=== PATIENT | male | born 1980 | race Caucasian/White ===

== ENCOUNTER 2022-05-24 11:12 | Inpatient (IN) | payer OTHER ==
[2022-05-24 12:20] VITALS: BMI 21.2
[2022-05-24] MEDS ORDERED: BISMUTH SUBSALICYLATE 524 MG/30 ML PO PRN (12:33)
[2022-05-24] MEDS ORDERED: chlordiazePOXIDE HCL 25 MG CAPSULE PO PRN (12:33)
[2022-05-24] MEDS ORDERED: NALOXONE HCL (KLOXXADO) 8 MG SPRAY NS PRN (12:33)
[2022-05-24] MEDS ORDERED: chlordiazePOXIDE HCL 25 MG CAPSULE PO ONE (12:33)
[2022-05-24] MEDS ORDERED: MAGNESIUM HYDROX 2400MG/30ML ORAL SUSPENSION 30 ML CUP PO PRN (12:33)
[2022-05-24] MEDS ORDERED: IBUPROFEN 400 MG TABLET (FP) PO PRN (12:33)
[2022-05-24] MEDS ORDERED: METHOCARBAMOL 500 MG TABLET PO PRN (12:33)
[2022-05-24] MEDS ORDERED: ACETAMINOPHEN 325 MG TABLET (FP) PO PRN ×2 (12:33)
[2022-05-24] MEDS ORDERED: NICOTINE 10 MG CARTRIDGE (INHALER) IH PRN (12:33)
[2022-05-24] MEDS ORDERED: BENZOCAINE/MENTHOL (CHLORASEPTIC ) LOZENGE MM PRN (12:33)
[2022-05-24] MEDS ORDERED: DICYCLOMINE HCL 10 MG CAPSULE PO PRN (12:33)
[2022-05-24] MEDS ORDERED: MAGNESIUM CITRATE 300 ML BOTTLE PO PRN (12:33)
[2022-05-24] MEDS ORDERED: hydrOXYzine PAMOATE 25 MG CAPSULE (FP) PO PRN (12:33)
[2022-05-24] MEDS ORDERED: LOPERAMIDE HCL 2 MG CAPSULE PO PRN (12:33)
[2022-05-24] MEDS ORDERED: ONDANSETRON *ODT* 4 MG TABLET SL PRN (12:33)
[2022-05-24] MEDS ORDERED: IBUPROFEN 600 MG TABLET (FP) PO PRN (12:33)
[2022-05-24] MEDS ORDERED: chlordiazePOXIDE HCL 25 MG CAPSULE ONE (12:43)
[2022-05-24] MEDS: PRENATAL VITAMINS W/ FOLIC ACID TABLET (FP) PO SCH (13:12)
[2022-05-24] MEDS: NICOTINE 14 MG/24 HOURS TOPICAL PATCH TD SCH (13:15)
[2022-05-24] MEDS: chlordiazePOXIDE HCL 25 MG CAPSULE PO SCH ×2 (17:59→22:20)
[2022-05-24] MEDS: MELATONIN 5 MG TABLETS PO SCH (22:20)
[2022-05-24] MEDS: THIAMINE HCL 100 MG TABLET (FP) PO SCH (22:20)
[2022-05-24] MEDS: SUVOREXANT 10 MG TABLET PO PRN (22:22)
[2022-05-25] MEDS: chlordiazePOXIDE HCL 25 MG CAPSULE PO SCH ×4 (05:22→22:30)
[2022-05-25 09:55] LABS: HEMATOCRIT 34.4 % (35.4-49); HEMOGLOBIN 11.2 GM/dL (11.7-16.9); MCHC 32.6 g/dl (32.0-35.9); MEAN CELL VOLUME 95.2 fl (80-96); PLATELET COUNT 222 10^3/uL (134-434); RBC 3.61 M/mm3 (4.00-5.60); RDW 16.4 % (11.9-15.9); WHITE BLOOD COUNT 9.6 K/mm3 (4.0-10.0)
[2022-05-25 10:00] LABS: CHLORIDE 110 mmol/L (98-107); SODIUM 145 mmol/L (136-145)
[2022-05-25 10:17] LABS: ALBUMIN 2.8 g/dl (3.4-5.0); ANION GAP 9 MMOL/L (8-16); CALCIUM 8.3 mg/dL (8.5-10.1); CO2 26 mmol/L (21-32)
[2022-05-25 10:19] LABS: GLUCOSE,RANDOM 87 mg/dL (74-106)
[2022-05-25 10:21] LABS: CREATININE 0.6 mg/dL (0.55-1.3); SGPT/ALT 19 U/L (13-61)
[2022-05-25 10:22] LABS: BILIRUBIN,TOTAL 0.9 mg/dL (0.2-1); SGOT/AST 30 U/L (15-37); TOT PROT 5.3 g/dl (6.4-8.2)
[2022-05-25 10:23] LABS: ALK PHOS 148 U/L (45-117)
[2022-05-25] MEDS ORDERED: POTASSIUM CHLORIDE ORAL LIQUID 20 MEQ/15 ML PO ONE (10:26)
[2022-05-25 10:32] LABS: BLOOD UREA NITROGEN 2.8 mg/dL (7-18)
[2022-05-25] MEDS: PRENATAL VITAMINS W/ FOLIC ACID TABLET (FP) PO SCH (10:36)
[2022-05-25] MEDS: NICOTINE 14 MG/24 HOURS TOPICAL PATCH TD SCH (10:38)
[2022-05-25] MEDS: LACTULOSE 20 GM/30 ML UDC (FOR ORAL USE ONLY) PO SCH ×3 (14:05→22:31)
[2022-05-25] MEDS: POTASSIUM CHLORIDE ORAL LIQUID 20 MEQ/15 ML PO SCH (22:30)
[2022-05-25] MEDS: THIAMINE HCL 100 MG TABLET (FP) PO SCH (22:30)
[2022-05-25] MEDS: MELATONIN 5 MG TABLETS PO SCH (22:31)
[2022-05-25] MEDS: SUVOREXANT 10 MG TABLET PO PRN (22:34)
[2022-05-26] MEDS: chlordiazePOXIDE HCL 25 MG CAPSULE PO SCH ×4 (05:15→22:39)
[2022-05-26] MEDS: NICOTINE 14 MG/24 HOURS TOPICAL PATCH TD SCH (10:15)
[2022-05-26] MEDS: POTASSIUM CHLORIDE ORAL LIQUID 20 MEQ/15 ML PO SCH ×2 (10:16→22:41)
[2022-05-26] MEDS: PRENATAL VITAMINS W/ FOLIC ACID TABLET (FP) PO SCH (10:16)
[2022-05-26] MEDS: LACTULOSE 20 GM/30 ML UDC (FOR ORAL USE ONLY) PO SCH ×4 (10:17→22:42)
[2022-05-26 12:01] LABS: BLOOD UREA NITROGEN 2.6 mg/dL (7-18)
[2022-05-26] MEDS: MAG HYDROX/AL HYDROX/SIMETH 30 ML UNIT-DOSE CUP PO PRN (19:03)
[2022-05-26] MEDS: MELATONIN 5 MG TABLETS PO SCH (22:38)
[2022-05-26] MEDS: THIAMINE HCL 100 MG TABLET (FP) PO SCH (22:38)
[2022-05-26] MEDS: SUVOREXANT 10 MG TABLET PO PRN (22:38)
[2022-05-27] MEDS ORDERED: chlordiazePOXIDE HCL 10 MG CAPSULE PO PRN
[2022-05-27] MEDS: chlordiazePOXIDE HCL 10 MG CAPSULE PO SCH ×4 (05:13→22:38)
[2022-05-27] MEDS: NICOTINE 14 MG/24 HOURS TOPICAL PATCH TD SCH (10:43)
[2022-05-27] MEDS: PRENATAL VITAMINS W/ FOLIC ACID TABLET (FP) PO SCH (10:43)
[2022-05-27] MEDS: LACTULOSE 20 GM/30 ML UDC (FOR ORAL USE ONLY) PO SCH ×4 (10:43→22:39)
[2022-05-27] MEDS: MAG HYDROX/AL HYDROX/SIMETH 30 ML UNIT-DOSE CUP PO PRN ×2 (11:54→22:40)
[2022-05-27] MEDS ORDERED: SUVOREXANT 10 MG TABLET PO PRN (22:00)
[2022-05-27] MEDS: THIAMINE HCL 100 MG TABLET (FP) PO SCH (22:38)
[2022-05-27] MEDS: MELATONIN 5 MG TABLETS PO SCH (22:38)
[2022-05-28] MEDS: chlordiazePOXIDE HCL 10 MG CAPSULE PO SCH ×2 (05:22→18:21)
[2022-05-28] MEDS: PRENATAL VITAMINS W/ FOLIC ACID TABLET (FP) PO SCH (10:11)
[2022-05-28] MEDS: LACTULOSE 20 GM/30 ML UDC (FOR ORAL USE ONLY) PO SCH ×4 (10:12→22:10)
[2022-05-28] MEDS: NICOTINE 14 MG/24 HOURS TOPICAL PATCH TD SCH (10:13)
[2022-05-28] MEDS: MAG HYDROX/AL HYDROX/SIMETH 30 ML UNIT-DOSE CUP PO PRN (15:22)
[2022-05-28] MEDS ORDERED: POTASSIUM CHLORIDE ORAL LIQUID 20 MEQ/15 ML PO ONE (15:34)
[2022-05-28] MEDS: THIAMINE HCL 100 MG TABLET (FP) PO SCH (22:09)
[2022-05-28] MEDS: MELATONIN 5 MG TABLETS PO SCH (22:09)
[2022-05-28] MEDS: POTASSIUM CHLORIDE ORAL LIQUID 20 MEQ/15 ML PO SCH (22:10)
[2022-05-29] MEDS ORDERED: chlordiazePOXIDE HCL 10 MG CAPSULE PO ONE (05:00)
[2022-05-29] MEDS: MAG HYDROX/AL HYDROX/SIMETH 30 ML UNIT-DOSE CUP PO PRN ×2 (09:31→14:35)
[2022-05-29] MEDS: NICOTINE 14 MG/24 HOURS TOPICAL PATCH TD SCH (10:31)
[2022-05-29] MEDS: PRENATAL VITAMINS W/ FOLIC ACID TABLET (FP) PO SCH (10:31)
[2022-05-29] MEDS: LACTULOSE 20 GM/30 ML UDC (FOR ORAL USE ONLY) PO SCH ×2 (10:32→15:01)
[2022-05-29] MEDS: POTASSIUM CHLORIDE ORAL LIQUID 20 MEQ/15 ML PO SCH (10:32)
[2022-05-29 12:41] VITALS: BP 102/67; PULSE 90; RESP 17; TEMP 98
== END 2022-05-29 15:08 | disposition other institution (70) | DRG 775 ==
LOC: YASAS 11:12 → Y3N 12:39
PROVIDERS: ADMIT Allergy & Immunology; ATTEND Surgery
PROC: HZ2ZZZZ Detoxification Services for Substance Abuse Treatment (ICD-10-PCS; principal; 2022-05-24)
DX: F10.230 Alcohol dependence with withdrawal, uncomplicated (principal); F12.20 Cannabis dependence, uncomplicated; F17.210 Nicotine dependence, cigarettes, uncomplicated; E87.6 Hypokalemia; G40.909 Epilepsy, unspecified, not intractable, without status epilepticus; G47.00 Insomnia, unspecified; M54.50 Low back pain, unspecified; G89.29 Other chronic pain; R79.89 Other specified abnormal findings of blood chemistry; Z86.19 Personal history of other infectious and parasitic diseases; Z28.310 Unvaccinated for COVID-19; Z28.9 Immunization not carried out for unspecified reason; Z91.14 Patient's other noncompliance with medication regimen
CPT/HCPCS: 36415; 80053; 82140; 84132; 84520; 85027; 86780; 93005; 93010; C9803-CS; U0003; U0005

== ENCOUNTER 2022-05-29 15:12 | Inpatient (IN) | payer OTHER ==
[2022-05-29] MEDS ORDERED: MAGNESIUM HYDROX 2400MG/30ML ORAL SUSPENSION 30 ML CUP PO PRN (15:39)
[2022-05-29] MEDS ORDERED: NICOTINE POLACRILEX 2 MG GUM BC PRN (15:39)
[2022-05-29] MEDS ORDERED: ACETAMINOPHEN 325 MG TABLET (FP) PO PRN (15:39)
[2022-05-29] MEDS ORDERED: MAGNESIUM CITRATE 300 ML BOTTLE PO PRN (15:39)
[2022-05-29] MEDS ORDERED: LOPERAMIDE HCL 2 MG CAPSULE PO PRN (15:39)
[2022-05-29] MEDS ORDERED: IBUPROFEN 400 MG TABLET (FP) PO PRN (15:39)
[2022-05-29] MEDS ORDERED: P-EPHED 60MG/TRIPROLIDI 2.5MG TABLET PO PRN (15:39)
[2022-05-29] MEDS ORDERED: guaiFENesin 200 MG/10 ML 10 ML UNIT-DOSE CUPS PO PRN (15:39)
[2022-05-29] MEDS: LACTULOSE 20 GM/30 ML UDC (FOR ORAL USE ONLY) PO SCH ×2 (17:37→21:25)
[2022-05-29] MEDS: IBUPROFEN 400 MG TABLET (FP) PO PRN (17:40)
[2022-05-29] MEDS: NICOTINE 10 MG CARTRIDGE (INHALER) IH PRN (19:00)
[2022-05-29] MEDS: MAG HYDROX/AL HYDROX/SIMETH 30 ML UNIT-DOSE CUP PO PRN (19:08)
[2022-05-29] MEDS: THIAMINE HCL 100 MG TABLET (FP) PO SCH (21:25)
[2022-05-29] MEDS: MELATONIN 5 MG TABLETS PO SCH (21:25)
[2022-05-30] MEDS: IBUPROFEN 400 MG TABLET (FP) PO PRN (09:49)
[2022-05-30] MEDS: PRENATAL VITAMINS W/ FOLIC ACID TABLET (FP) PO SCH (09:49)
[2022-05-30] MEDS: LACTULOSE 20 GM/30 ML UDC (FOR ORAL USE ONLY) PO SCH ×4 (09:49→21:32)
[2022-05-30] MEDS: hydrOXYzine PAMOATE 25 MG CAPSULE (FP) PO PRN (09:51)
[2022-05-30] MEDS: NICOTINE 7 MG/24 HOURS TOPICAL PATCH TD PRN (10:07)
[2022-05-30] MEDS: NICOTINE 10 MG CARTRIDGE (INHALER) IH PRN (10:09)
[2022-05-30 11:30] LABS: URINE APPEARANCE CLEAR; URINE BILIRUBIN NEGATIVE (NEGATIVE); URINE COLOR YELLOW; URINE GLUCOSE (UA) NEGATIVE (NEGATIVE); URINE KETONE NEGATIVE (NEGATIVE); URINE LEUK ESTERASE NEGATIVE (NEGATIVE); URINE NITRITE NEGATIVE (NEGATIVE); URINE PROTEIN NEGATIVE (NEGATIVE); URINE UROBILINOGEN 0.2 mg/dL (0.2-1.0)
[2022-05-30 12:24] LABS: HIV INTERPRETATION NEGATIVE (NEGATIVE)
[2022-05-30] MEDS: MAG HYDROX/AL HYDROX/SIMETH 30 ML UNIT-DOSE CUP PO PRN (14:15)
[2022-05-30] MEDS: THIAMINE HCL 100 MG TABLET (FP) PO SCH (21:32)
[2022-05-30] MEDS: MELATONIN 5 MG TABLETS PO SCH (21:32)
[2022-05-31] MEDS: LACTULOSE 20 GM/30 ML UDC (FOR ORAL USE ONLY) PO SCH ×4 (10:02→21:26)
[2022-05-31] MEDS: PRENATAL VITAMINS W/ FOLIC ACID TABLET (FP) PO SCH (10:02)
[2022-05-31] MEDS: IBUPROFEN 400 MG TABLET (FP) PO PRN (10:04)
[2022-05-31] MEDS: NICOTINE 10 MG CARTRIDGE (INHALER) IH PRN (10:05)
[2022-05-31] MEDS: NICOTINE 7 MG/24 HOURS TOPICAL PATCH TD PRN (10:05)
[2022-05-31] MEDS: MAG HYDROX/AL HYDROX/SIMETH 30 ML UNIT-DOSE CUP PO PRN (12:03)
[2022-05-31] MEDS: MELATONIN 5 MG TABLETS PO SCH (21:26)
[2022-05-31] MEDS: THIAMINE HCL 100 MG TABLET (FP) PO SCH (21:26)
[2022-06-01] MEDS: PRENATAL VITAMINS W/ FOLIC ACID TABLET (FP) PO SCH (10:01)
[2022-06-01] MEDS: LACTULOSE 20 GM/30 ML UDC (FOR ORAL USE ONLY) PO SCH ×4 (10:02→21:14)
[2022-06-01] MEDS: FAMOTIDINE 20 MG TABLET PO PRN (10:02)
[2022-06-01] MEDS: NICOTINE 10 MG CARTRIDGE (INHALER) IH PRN ×2 (10:10→21:52)
[2022-06-01] MEDS: NICOTINE 7 MG/24 HOURS TOPICAL PATCH TD PRN (10:18)
[2022-06-01 11:27] LABS: CALCIUM 9.4 mg/dL (8.5-10.1)
[2022-06-01 11:30] LABS: CREATININE 0.8 mg/dL (0.55-1.3)
[2022-06-01 11:32] LABS: BILIRUBIN,TOTAL 0.6 mg/dL (0.2-1); TOT PROT 6.9 g/dl (6.4-8.2)
[2022-06-01 11:34] LABS: ALBUMIN 3.7 g/dl (3.4-5.0)
[2022-06-01] MEDS: hydrOXYzine PAMOATE 25 MG CAPSULE (FP) PO PRN (18:56)
[2022-06-01] MEDS: THIAMINE HCL 100 MG TABLET (FP) PO SCH (21:14)
[2022-06-01] MEDS: MELATONIN 5 MG TABLETS PO SCH (21:14)
[2022-06-02] MEDS: PRENATAL VITAMINS W/ FOLIC ACID TABLET (FP) PO SCH (09:55)
[2022-06-02] MEDS: LACTULOSE 20 GM/30 ML UDC (FOR ORAL USE ONLY) PO SCH ×4 (09:55→21:28)
[2022-06-02] MEDS: NICOTINE 10 MG CARTRIDGE (INHALER) IH PRN ×2 (10:39→21:51)
[2022-06-02] MEDS: NICOTINE 7 MG/24 HOURS TOPICAL PATCH TD PRN (10:40)
[2022-06-02] MEDS: FAMOTIDINE 20 MG TABLET PO PRN (12:07)
[2022-06-02] MEDS: IBUPROFEN 400 MG TABLET (FP) PO PRN (13:32)
[2022-06-02] MEDS: MELATONIN 5 MG TABLETS PO SCH (21:28)
[2022-06-02] MEDS: THIAMINE HCL 100 MG TABLET (FP) PO SCH (21:28)
[2022-06-03] MEDS: NICOTINE 10 MG CARTRIDGE (INHALER) IH PRN ×2 (09:44→19:46)
[2022-06-03] MEDS: PRENATAL VITAMINS W/ FOLIC ACID TABLET (FP) PO SCH (09:44)
[2022-06-03] MEDS: LACTULOSE 20 GM/30 ML UDC (FOR ORAL USE ONLY) PO SCH ×4 (09:45→21:06)
[2022-06-03] MEDS: hydrOXYzine PAMOATE 25 MG CAPSULE (FP) PO PRN ×2 (13:22→17:30)
[2022-06-03] MEDS: THIAMINE HCL 100 MG TABLET (FP) PO SCH (21:06)
[2022-06-03] MEDS: IBUPROFEN 400 MG TABLET (FP) PO PRN (21:13)
[2022-06-03] MEDS: MELATONIN 5 MG TABLETS PO SCH (22:35)
[2022-06-04] MEDS: NICOTINE 10 MG CARTRIDGE (INHALER) IH PRN ×2 (08:43→13:26)
[2022-06-04] MEDS: IBUPROFEN 400 MG TABLET (FP) PO PRN ×2 (08:49→21:24)
[2022-06-04] MEDS: hydrOXYzine PAMOATE 25 MG CAPSULE (FP) PO PRN (08:50)
[2022-06-04] MEDS: PRENATAL VITAMINS W/ FOLIC ACID TABLET (FP) PO SCH (09:15)
[2022-06-04] MEDS: NICOTINE 7 MG/24 HOURS TOPICAL PATCH TD PRN (09:39)
[2022-06-04] MEDS ORDERED: FLU VACC QS2022-23(6MOS UP)/PF 60 MCG/0.5 ML SYRINGE IM ONE (10:00)
[2022-06-04] MEDS: LACTULOSE 20 GM/30 ML UDC (FOR ORAL USE ONLY) PO SCH ×4 (11:09→21:24)
[2022-06-04] MEDS: MELATONIN 5 MG TABLETS PO SCH (21:25)
[2022-06-04] MEDS: THIAMINE HCL 100 MG TABLET (FP) PO SCH (21:26)
[2022-06-04] MEDS: HYDROCORTISONE 0.5% TOPICAL CREAM 30 GM TUBE TP PRN (21:26)
[2022-06-05] MEDS: NICOTINE 10 MG CARTRIDGE (INHALER) IH PRN ×2 (08:13→21:15)
[2022-06-05] MEDS: LACTULOSE 20 GM/30 ML UDC (FOR ORAL USE ONLY) PO SCH ×4 (09:40→21:14)
[2022-06-05] MEDS: PRENATAL VITAMINS W/ FOLIC ACID TABLET (FP) PO SCH (09:40)
[2022-06-05] MEDS: IBUPROFEN 600 MG TABLET (FP) PO PRN (09:42)
[2022-06-05] MEDS: hydrOXYzine PAMOATE 25 MG CAPSULE (FP) PO PRN (09:42)
[2022-06-05] MEDS: METHOCARBAMOL 500 MG TABLET PO PRN ×2 (09:42→21:14)
[2022-06-05] MEDS: NICOTINE 7 MG/24 HOURS TOPICAL PATCH TD PRN (09:57)
[2022-06-05] MEDS: FAMOTIDINE 20 MG TABLET PO PRN (11:38)
[2022-06-05] MEDS: HYDROCORTISONE 0.5% TOPICAL CREAM 30 GM TUBE TP PRN (12:48)
[2022-06-05] MEDS: THIAMINE HCL 100 MG TABLET (FP) PO SCH (21:14)
[2022-06-05] MEDS: MELATONIN 5 MG TABLETS PO SCH (21:14)
[2022-06-06 06:50] VITALS: RESP 18
[2022-06-06] MEDS: PRENATAL VITAMINS W/ FOLIC ACID TABLET (FP) PO SCH (09:48)
[2022-06-06] MEDS: hydrOXYzine PAMOATE 25 MG CAPSULE (FP) PO PRN (09:49)
[2022-06-06] MEDS: LACTULOSE 20 GM/30 ML UDC (FOR ORAL USE ONLY) PO SCH ×4 (09:49→21:26)
[2022-06-06] MEDS: METHOCARBAMOL 500 MG TABLET PO PRN ×2 (09:49→21:26)
[2022-06-06] MEDS: IBUPROFEN 600 MG TABLET (FP) PO PRN (09:49)
[2022-06-06] MEDS: HYDROCORTISONE 0.5% TOPICAL CREAM 30 GM TUBE TP PRN (09:50)
[2022-06-06] MEDS: NICOTINE 7 MG/24 HOURS TOPICAL PATCH TD PRN (09:53)
[2022-06-06] MEDS: THIAMINE HCL 100 MG TABLET (FP) PO SCH (21:26)
[2022-06-06] MEDS: MELATONIN 5 MG TABLETS PO SCH (21:51)
[2022-06-06] MEDS: NICOTINE 10 MG CARTRIDGE (INHALER) IH PRN (23:10)
[2022-06-07] MEDS: HYDROCORTISONE 0.5% TOPICAL CREAM 30 GM TUBE TP PRN ×2 (06:18→09:38)
[2022-06-07] MEDS: PRENATAL VITAMINS W/ FOLIC ACID TABLET (FP) PO SCH (09:37)
[2022-06-07] MEDS: LACTULOSE 20 GM/30 ML UDC (FOR ORAL USE ONLY) PO SCH ×4 (09:38→21:10)
[2022-06-07] MEDS: NICOTINE 10 MG CARTRIDGE (INHALER) IH PRN (10:23)
[2022-06-07] MEDS: NICOTINE 7 MG/24 HOURS TOPICAL PATCH TD PRN (10:23)
[2022-06-07] MEDS ORDERED: NICOTINE POLACRILEX 4 MG GUM BUC PRN (11:10)
[2022-06-07] MEDS: THIAMINE HCL 100 MG TABLET (FP) PO SCH (21:10)
[2022-06-07] MEDS: METHOCARBAMOL 500 MG TABLET PO PRN (21:10)
[2022-06-07] MEDS: MELATONIN 5 MG TABLETS PO SCH (22:15)
[2022-06-08] MEDS: PRENATAL VITAMINS W/ FOLIC ACID TABLET (FP) PO SCH (09:43)
[2022-06-08] MEDS: LACTULOSE 20 GM/30 ML UDC (FOR ORAL USE ONLY) PO SCH ×4 (09:43→21:06)
[2022-06-08] MEDS: METHOCARBAMOL 500 MG TABLET PO PRN ×2 (09:44→21:06)
[2022-06-08] MEDS: FAMOTIDINE 20 MG TABLET PO PRN (09:44)
[2022-06-08] MEDS: IBUPROFEN 600 MG TABLET (FP) PO PRN (09:45)
[2022-06-08] MEDS: NICOTINE 10 MG CARTRIDGE (INHALER) IH PRN ×2 (10:12→21:07)
[2022-06-08] MEDS: NICOTINE 21 MG/24 HOURS TOPICAL PATCH TD PRN (10:12)
[2022-06-08] MEDS: THIAMINE HCL 100 MG TABLET (FP) PO SCH (21:06)
[2022-06-08] MEDS: MELATONIN 5 MG TABLETS PO SCH (22:35)
[2022-06-09] MEDS: LACTULOSE 20 GM/30 ML UDC (FOR ORAL USE ONLY) PO SCH ×4 (09:54→21:27)
[2022-06-09] MEDS: PRENATAL VITAMINS W/ FOLIC ACID TABLET (FP) PO SCH (09:54)
[2022-06-09] MEDS: IBUPROFEN 600 MG TABLET (FP) PO PRN (09:55)
[2022-06-09] MEDS: NICOTINE 21 MG/24 HOURS TOPICAL PATCH TD PRN (10:35)
[2022-06-09] MEDS: NICOTINE 10 MG CARTRIDGE (INHALER) IH PRN ×2 (10:35→22:41)
[2022-06-09] MEDS: HYDROCORTISONE 0.5% TOPICAL CREAM 30 GM TUBE TP PRN (10:39)
[2022-06-09] MEDS: MELATONIN 5 MG TABLETS PO SCH (21:27)
[2022-06-09] MEDS: THIAMINE HCL 100 MG TABLET (FP) PO SCH (21:27)
[2022-06-09] MEDS: METHOCARBAMOL 500 MG TABLET PO PRN (21:27)
[2022-06-10] MEDS: PRENATAL VITAMINS W/ FOLIC ACID TABLET (FP) PO SCH (09:52)
[2022-06-10] MEDS: IBUPROFEN 600 MG TABLET (FP) PO PRN ×2 (09:53→21:28)
[2022-06-10] MEDS: LACTULOSE 20 GM/30 ML UDC (FOR ORAL USE ONLY) PO SCH ×4 (09:53→21:29)
[2022-06-10] MEDS: NICOTINE 10 MG CARTRIDGE (INHALER) IH PRN ×2 (09:55→21:29)
[2022-06-10] MEDS: NICOTINE 21 MG/24 HOURS TOPICAL PATCH TD PRN (09:55)
[2022-06-10] MEDS: THIAMINE HCL 100 MG TABLET (FP) PO SCH (21:28)
[2022-06-10] MEDS: METHOCARBAMOL 500 MG TABLET PO PRN (21:28)
[2022-06-10] MEDS: MELATONIN 5 MG TABLETS PO SCH (21:28)
[2022-06-11] MEDS: PRENATAL VITAMINS W/ FOLIC ACID TABLET (FP) PO SCH (10:14)
[2022-06-11] MEDS: LACTULOSE 20 GM/30 ML UDC (FOR ORAL USE ONLY) PO SCH ×4 (10:14→21:08)
[2022-06-11] MEDS: NICOTINE 10 MG CARTRIDGE (INHALER) IH PRN ×2 (10:15→21:08)
[2022-06-11] MEDS: IBUPROFEN 600 MG TABLET (FP) PO PRN (10:17)
[2022-06-11] MEDS: METHOCARBAMOL 500 MG TABLET PO PRN ×2 (10:17→21:08)
[2022-06-11] MEDS: NICOTINE 21 MG/24 HOURS TOPICAL PATCH TD PRN (10:50)
[2022-06-11] MEDS: HYDROCORTISONE 0.5% TOPICAL CREAM 30 GM TUBE TP PRN (10:52)
[2022-06-11] MEDS: THIAMINE HCL 100 MG TABLET (FP) PO SCH (21:08)
[2022-06-11] MEDS: MELATONIN 5 MG TABLETS PO SCH (22:36)
[2022-06-12] MEDS: PRENATAL VITAMINS W/ FOLIC ACID TABLET (FP) PO SCH (10:08)
[2022-06-12] MEDS: IBUPROFEN 600 MG TABLET (FP) PO PRN (10:09)
[2022-06-12] MEDS: HYDROCORTISONE 0.5% TOPICAL CREAM 30 GM TUBE TP PRN (10:09)
[2022-06-12] MEDS: METHOCARBAMOL 500 MG TABLET PO PRN ×2 (10:09→21:30)
[2022-06-12] MEDS: LACTULOSE 20 GM/30 ML UDC (FOR ORAL USE ONLY) PO SCH ×4 (10:09→21:30)
[2022-06-12] MEDS: NICOTINE 21 MG/24 HOURS TOPICAL PATCH TD PRN (10:12)
[2022-06-12] MEDS: NICOTINE 10 MG CARTRIDGE (INHALER) IH PRN ×2 (10:12→18:39)
[2022-06-12] MEDS: THIAMINE HCL 100 MG TABLET (FP) PO SCH (21:30)
[2022-06-12] MEDS: MELATONIN 5 MG TABLETS PO SCH (22:47)
[2022-06-13] MEDS: PRENATAL VITAMINS W/ FOLIC ACID TABLET (FP) PO SCH (09:11)
[2022-06-13] MEDS: METHOCARBAMOL 500 MG TABLET PO PRN ×2 (09:12→21:15)
[2022-06-13] MEDS: IBUPROFEN 600 MG TABLET (FP) PO PRN (09:12)
[2022-06-13] MEDS: LACTULOSE 20 GM/30 ML UDC (FOR ORAL USE ONLY) PO SCH ×4 (09:13→21:15)
[2022-06-13] MEDS: NICOTINE 10 MG CARTRIDGE (INHALER) IH PRN ×2 (10:00→18:56)
[2022-06-13] MEDS: NICOTINE 21 MG/24 HOURS TOPICAL PATCH TD PRN (10:45)
[2022-06-13 16:24] LABS: ALBUMIN 3.2 g/dl (3.4-5.0); CALCIUM 9.1 mg/dL (8.5-10.1)
[2022-06-13 16:25] LABS: BLOOD UREA NITROGEN 4.2 mg/dL (7-18)
[2022-06-13 16:27] LABS: CREATININE 0.6 mg/dL (0.55-1.3)
[2022-06-13 16:29] LABS: BILIRUBIN,TOTAL 0.6 mg/dL (0.2-1)
[2022-06-13] MEDS: THIAMINE HCL 100 MG TABLET (FP) PO SCH (21:14)
[2022-06-13] MEDS: MELATONIN 5 MG TABLETS PO SCH (21:14)
[2022-06-13] MEDS: SUVOREXANT 10 MG TABLET PO PRN (21:15)
[2022-06-14] MEDS: LACTULOSE 20 GM/30 ML UDC (FOR ORAL USE ONLY) PO SCH ×4 (10:03→21:35)
[2022-06-14] MEDS: HYDROCORTISONE 0.5% TOPICAL CREAM 30 GM TUBE TP PRN (10:03)
[2022-06-14] MEDS: PRENATAL VITAMINS W/ FOLIC ACID TABLET (FP) PO SCH (10:03)
[2022-06-14] MEDS: NICOTINE 10 MG CARTRIDGE (INHALER) IH PRN ×2 (10:05→21:37)
[2022-06-14] MEDS: hydrOXYzine PAMOATE 25 MG CAPSULE (FP) PO PRN ×2 (10:05→21:37)
[2022-06-14] MEDS: METHOCARBAMOL 500 MG TABLET PO PRN ×2 (10:05→21:35)
[2022-06-14] MEDS: IBUPROFEN 600 MG TABLET (FP) PO PRN ×2 (10:05→21:36)
[2022-06-14] MEDS: NICOTINE 21 MG/24 HOURS TOPICAL PATCH TD PRN (11:05)
[2022-06-14] MEDS: SUVOREXANT 10 MG TABLET PO PRN (21:33)
[2022-06-14] MEDS: MELATONIN 5 MG TABLETS PO SCH (21:35)
[2022-06-14] MEDS: THIAMINE HCL 100 MG TABLET (FP) PO SCH (21:36)
[2022-06-15] MEDS: LACTULOSE 20 GM/30 ML UDC (FOR ORAL USE ONLY) PO SCH ×4 (10:16→21:25)
[2022-06-15] MEDS: PRENATAL VITAMINS W/ FOLIC ACID TABLET (FP) PO SCH (10:16)
[2022-06-15] MEDS: METHOCARBAMOL 500 MG TABLET PO PRN ×2 (10:18→21:22)
[2022-06-15] MEDS: NICOTINE 21 MG/24 HOURS TOPICAL PATCH TD PRN (10:18)
[2022-06-15] MEDS: NICOTINE 10 MG CARTRIDGE (INHALER) IH PRN ×2 (10:18→22:15)
[2022-06-15] MEDS: IBUPROFEN 600 MG TABLET (FP) PO PRN ×2 (10:19→21:22)
[2022-06-15] MEDS: hydrOXYzine PAMOATE 25 MG CAPSULE (FP) PO PRN ×2 (10:19→21:24)
[2022-06-15] MEDS: SUVOREXANT 10 MG TABLET PO PRN (21:23)
[2022-06-15] MEDS: MELATONIN 5 MG TABLETS PO SCH (21:23)
[2022-06-15] MEDS: THIAMINE HCL 100 MG TABLET (FP) PO SCH (21:24)
[2022-06-16] MEDS: LACTULOSE 20 GM/30 ML UDC (FOR ORAL USE ONLY) PO SCH ×4 (09:44→21:36)
[2022-06-16] MEDS: PRENATAL VITAMINS W/ FOLIC ACID TABLET (FP) PO SCH (09:44)
[2022-06-16] MEDS: METHOCARBAMOL 500 MG TABLET PO PRN ×2 (09:46→21:36)
[2022-06-16] MEDS: hydrOXYzine PAMOATE 25 MG CAPSULE (FP) PO PRN ×2 (09:47→21:37)
[2022-06-16] MEDS: NICOTINE 21 MG/24 HOURS TOPICAL PATCH TD PRN (12:32)
[2022-06-16] MEDS: NICOTINE 10 MG CARTRIDGE (INHALER) IH PRN ×2 (12:32→21:37)
[2022-06-16] MEDS: THIAMINE HCL 100 MG TABLET (FP) PO SCH (21:36)
[2022-06-16] MEDS: SUVOREXANT 10 MG TABLET PO PRN (21:38)
[2022-06-16] MEDS: MELATONIN 5 MG TABLETS PO SCH (21:38)
[2022-06-16] MEDS ORDERED: SUVOREXANT 10 MG TABLET PO PRN (22:00)
[2022-06-17] MEDS: LACTULOSE 20 GM/30 ML UDC (FOR ORAL USE ONLY) PO SCH ×4 (10:01→21:33)
[2022-06-17] MEDS: NICOTINE 10 MG CARTRIDGE (INHALER) IH PRN ×2 (10:01→19:02)
[2022-06-17] MEDS: PRENATAL VITAMINS W/ FOLIC ACID TABLET (FP) PO SCH (10:01)
[2022-06-17] MEDS: NICOTINE 21 MG/24 HOURS TOPICAL PATCH TD PRN (10:02)
[2022-06-17] MEDS: hydrOXYzine PAMOATE 25 MG CAPSULE (FP) PO PRN ×2 (10:02→21:33)
[2022-06-17] MEDS: IBUPROFEN 600 MG TABLET (FP) PO PRN (10:05)
[2022-06-17] MEDS: METHOCARBAMOL 500 MG TABLET PO PRN ×2 (10:05→21:33)
[2022-06-17] MEDS: THIAMINE HCL 100 MG TABLET (FP) PO SCH (21:32)
[2022-06-17] MEDS: MELATONIN 5 MG TABLETS PO SCH (21:32)
[2022-06-18] MEDS: LACTULOSE 20 GM/30 ML UDC (FOR ORAL USE ONLY) PO SCH ×4 (09:44→21:23)
[2022-06-18] MEDS: PRENATAL VITAMINS W/ FOLIC ACID TABLET (FP) PO SCH (09:44)
[2022-06-18] MEDS: hydrOXYzine PAMOATE 25 MG CAPSULE (FP) PO PRN ×2 (09:46→21:25)
[2022-06-18] MEDS: METHOCARBAMOL 500 MG TABLET PO PRN ×2 (09:47→21:24)
[2022-06-18] MEDS: IBUPROFEN 600 MG TABLET (FP) PO PRN (09:48)
[2022-06-18] MEDS: NICOTINE 10 MG CARTRIDGE (INHALER) IH PRN ×2 (09:49→21:24)
[2022-06-18] MEDS: NICOTINE 21 MG/24 HOURS TOPICAL PATCH TD PRN (09:49)
[2022-06-18] MEDS: THIAMINE HCL 100 MG TABLET (FP) PO SCH (21:23)
[2022-06-18] MEDS: MELATONIN 5 MG TABLETS PO SCH (21:23)
[2022-06-19] MEDS: hydrOXYzine PAMOATE 25 MG CAPSULE (FP) PO PRN ×2 (10:39→21:09)
[2022-06-19] MEDS: LACTULOSE 20 GM/30 ML UDC (FOR ORAL USE ONLY) PO SCH ×4 (10:39→21:08)
[2022-06-19] MEDS: PRENATAL VITAMINS W/ FOLIC ACID TABLET (FP) PO SCH (10:39)
[2022-06-19] MEDS: METHOCARBAMOL 500 MG TABLET PO PRN ×2 (10:40→21:09)
[2022-06-19] MEDS: IBUPROFEN 600 MG TABLET (FP) PO PRN (10:40)
[2022-06-19] MEDS: NICOTINE 10 MG CARTRIDGE (INHALER) IH PRN (10:42)
[2022-06-19] MEDS: NICOTINE 21 MG/24 HOURS TOPICAL PATCH TD PRN (10:42)
[2022-06-19] MEDS: MELATONIN 5 MG TABLETS PO SCH (21:08)
[2022-06-19] MEDS: THIAMINE HCL 100 MG TABLET (FP) PO SCH (21:08)
[2022-06-19] MEDS: SUVOREXANT 10 MG TABLET PO PRN (21:09)
[2022-06-20] MEDS: NICOTINE 10 MG CARTRIDGE (INHALER) IH PRN ×3 (06:19→21:19)
[2022-06-20] MEDS: LACTULOSE 20 GM/30 ML UDC (FOR ORAL USE ONLY) PO SCH ×4 (09:38→21:18)
[2022-06-20] MEDS: PRENATAL VITAMINS W/ FOLIC ACID TABLET (FP) PO SCH (09:38)
[2022-06-20] MEDS: IBUPROFEN 600 MG TABLET (FP) PO PRN (09:40)
[2022-06-20] MEDS: METHOCARBAMOL 500 MG TABLET PO PRN ×2 (09:40→21:19)
[2022-06-20] MEDS: hydrOXYzine PAMOATE 25 MG CAPSULE (FP) PO PRN ×2 (09:40→21:18)
[2022-06-20] MEDS: NICOTINE 21 MG/24 HOURS TOPICAL PATCH TD PRN (09:42)
[2022-06-20] MEDS: THIAMINE HCL 100 MG TABLET (FP) PO SCH (21:18)
[2022-06-20] MEDS: MELATONIN 5 MG TABLETS PO SCH (21:18)
[2022-06-20] MEDS: SUVOREXANT 10 MG TABLET PO PRN (21:18)
[2022-06-21] MEDS: PRENATAL VITAMINS W/ FOLIC ACID TABLET (FP) PO SCH (09:53)
[2022-06-21] MEDS: LACTULOSE 20 GM/30 ML UDC (FOR ORAL USE ONLY) PO SCH ×4 (09:53→21:03)
[2022-06-21] MEDS: hydrOXYzine PAMOATE 25 MG CAPSULE (FP) PO PRN ×2 (09:54→21:04)
[2022-06-21] MEDS: IBUPROFEN 600 MG TABLET (FP) PO PRN (09:54)
[2022-06-21] MEDS: METHOCARBAMOL 500 MG TABLET PO PRN ×2 (09:55→21:04)
[2022-06-21] MEDS: NICOTINE 10 MG CARTRIDGE (INHALER) IH PRN ×3 (09:56→21:04)
[2022-06-21] MEDS: NICOTINE 21 MG/24 HOURS TOPICAL PATCH TD PRN (14:03)
[2022-06-21] MEDS: MELATONIN 5 MG TABLETS PO SCH (21:03)
[2022-06-21] MEDS: THIAMINE HCL 100 MG TABLET (FP) PO SCH (21:03)
[2022-06-21] MEDS: SUVOREXANT 10 MG TABLET PO PRN (21:04)
[2022-06-22] MEDS: LACTULOSE 20 GM/30 ML UDC (FOR ORAL USE ONLY) PO SCH ×4 (10:02→21:02)
[2022-06-22] MEDS: PRENATAL VITAMINS W/ FOLIC ACID TABLET (FP) PO SCH (10:02)
[2022-06-22] MEDS: hydrOXYzine PAMOATE 25 MG CAPSULE (FP) PO PRN ×2 (10:04→21:03)
[2022-06-22] MEDS: METHOCARBAMOL 500 MG TABLET PO PRN ×2 (10:04→21:04)
[2022-06-22] MEDS: IBUPROFEN 600 MG TABLET (FP) PO PRN (10:04)
[2022-06-22] MEDS: NICOTINE 21 MG/24 HOURS TOPICAL PATCH TD PRN (10:04)
[2022-06-22] MEDS: NICOTINE 10 MG CARTRIDGE (INHALER) IH PRN ×2 (10:05→22:53)
[2022-06-22] MEDS: THIAMINE HCL 100 MG TABLET (FP) PO SCH (21:02)
[2022-06-22] MEDS: MELATONIN 5 MG TABLETS PO SCH (21:02)
[2022-06-22] MEDS: SUVOREXANT 10 MG TABLET PO PRN (21:03)
[2022-06-23] MEDS: HYDROCORTISONE 0.5% TOPICAL CREAM 30 GM TUBE TP PRN (08:06)
[2022-06-23] MEDS: PRENATAL VITAMINS W/ FOLIC ACID TABLET (FP) PO SCH (09:45)
[2022-06-23] MEDS: LACTULOSE 20 GM/30 ML UDC (FOR ORAL USE ONLY) PO SCH ×4 (09:45→21:02)
[2022-06-23] MEDS: METHOCARBAMOL 500 MG TABLET PO PRN ×2 (09:47→21:02)
[2022-06-23] MEDS: IBUPROFEN 600 MG TABLET (FP) PO PRN (09:47)
[2022-06-23] MEDS: hydrOXYzine PAMOATE 25 MG CAPSULE (FP) PO PRN ×2 (09:48→21:02)
[2022-06-23] MEDS: NICOTINE 10 MG CARTRIDGE (INHALER) IH PRN ×2 (11:03→18:05)
[2022-06-23] MEDS: NICOTINE 21 MG/24 HOURS TOPICAL PATCH TD PRN (11:03)
[2022-06-23] MEDS: SUVOREXANT 10 MG TABLET PO PRN (21:01)
[2022-06-23] MEDS: MELATONIN 5 MG TABLETS PO SCH (21:02)
[2022-06-23] MEDS: THIAMINE HCL 100 MG TABLET (FP) PO SCH (21:03)
[2022-06-24] MEDS: NICOTINE 10 MG CARTRIDGE (INHALER) IH PRN ×2 (06:01→14:14)
[2022-06-24] MEDS: METHOCARBAMOL 500 MG TABLET PO PRN ×2 (08:44→21:01)
[2022-06-24] MEDS: IBUPROFEN 600 MG TABLET (FP) PO PRN (08:45)
[2022-06-24] MEDS: hydrOXYzine PAMOATE 25 MG CAPSULE (FP) PO PRN ×2 (08:45→21:02)
[2022-06-24] MEDS: PRENATAL VITAMINS W/ FOLIC ACID TABLET (FP) PO SCH (09:05)
[2022-06-24] MEDS: LACTULOSE 20 GM/30 ML UDC (FOR ORAL USE ONLY) PO SCH ×4 (09:05→21:01)
[2022-06-24] MEDS: HYDROCORTISONE 0.5% TOPICAL CREAM 30 GM TUBE TP PRN (13:05)
[2022-06-24] MEDS: NICOTINE 21 MG/24 HOURS TOPICAL PATCH TD PRN (13:38)
[2022-06-24] MEDS: THIAMINE HCL 100 MG TABLET (FP) PO SCH (21:02)
[2022-06-24] MEDS: MELATONIN 5 MG TABLETS PO SCH (21:02)
[2022-06-25] MEDS: NICOTINE 10 MG CARTRIDGE (INHALER) IH PRN ×3 (06:16→21:18)
[2022-06-25] MEDS: LACTULOSE 20 GM/30 ML UDC (FOR ORAL USE ONLY) PO SCH ×4 (09:03→21:06)
[2022-06-25] MEDS: PRENATAL VITAMINS W/ FOLIC ACID TABLET (FP) PO SCH (09:03)
[2022-06-25] MEDS: METHOCARBAMOL 500 MG TABLET PO PRN ×2 (09:26→21:06)
[2022-06-25] MEDS: hydrOXYzine PAMOATE 25 MG CAPSULE (FP) PO PRN ×2 (09:27→21:06)
[2022-06-25] MEDS: IBUPROFEN 600 MG TABLET (FP) PO PRN (09:27)
[2022-06-25] MEDS: HYDROCORTISONE 0.5% TOPICAL CREAM 30 GM TUBE TP PRN (10:21)
[2022-06-25] MEDS: NICOTINE 21 MG/24 HOURS TOPICAL PATCH TD PRN (10:22)
[2022-06-25] MEDS: THIAMINE HCL 100 MG TABLET (FP) PO SCH (21:06)
[2022-06-25] MEDS: MELATONIN 5 MG TABLETS PO SCH (21:06)
[2022-06-25] MEDS: SUVOREXANT 10 MG TABLET PO PRN (21:07)
[2022-06-26] MEDS: NICOTINE 10 MG CARTRIDGE (INHALER) IH PRN ×3 (06:22→17:46)
[2022-06-26] MEDS: PRENATAL VITAMINS W/ FOLIC ACID TABLET (FP) PO SCH (10:44)
[2022-06-26] MEDS: LACTULOSE 20 GM/30 ML UDC (FOR ORAL USE ONLY) PO SCH ×4 (10:44→21:22)
[2022-06-26] MEDS: METHOCARBAMOL 500 MG TABLET PO PRN ×2 (10:45→21:22)
[2022-06-26] MEDS: IBUPROFEN 600 MG TABLET (FP) PO PRN ×2 (10:45→17:45)
[2022-06-26] MEDS: hydrOXYzine PAMOATE 25 MG CAPSULE (FP) PO PRN ×2 (10:46→21:23)
[2022-06-26] MEDS: NICOTINE 21 MG/24 HOURS TOPICAL PATCH TD PRN (10:48)
[2022-06-26] MEDS: THIAMINE HCL 100 MG TABLET (FP) PO SCH (21:22)
[2022-06-26] MEDS: MELATONIN 5 MG TABLETS PO SCH (21:22)
[2022-06-26] MEDS: SUVOREXANT 10 MG TABLET PO PRN (21:23)
[2022-06-27 07:05] VITALS: BP 104/62; PULSE 73; TEMP 97.7
[2022-06-27] MEDS: METHOCARBAMOL 500 MG TABLET PO PRN (08:53)
[2022-06-27] MEDS: IBUPROFEN 600 MG TABLET (FP) PO PRN (08:53)
[2022-06-27] MEDS: hydrOXYzine PAMOATE 25 MG CAPSULE (FP) PO PRN (08:54)
[2022-06-27] MEDS: NICOTINE 10 MG CARTRIDGE (INHALER) IH PRN (09:02)
== END 2022-06-27 09:23 | disposition home or self-care (01) | DRG 772 ==
LOC: YASAS 15:12 → Y3W 15:13
PROVIDERS: ADMIT Allergy & Immunology; ATTEND Psychiatry & Neurology Pain Medicine
PROC: HZ42ZZZ Group Counseling for Substance Abuse Treatment, Cognitive-Behavioral (ICD-10-PCS; principal; 2022-05-29)
DX: F10.20 Alcohol dependence, uncomplicated (principal); F12.20 Cannabis dependence, uncomplicated; F17.210 Nicotine dependence, cigarettes, uncomplicated; G40.909 Epilepsy, unspecified, not intractable, without status epilepticus; G47.00 Insomnia, unspecified; M54.50 Low back pain, unspecified; G89.29 Other chronic pain; R12 Heartburn; R10.13 Epigastric pain; R21 Rash and other nonspecific skin eruption; Z86.19 Personal history of other infectious and parasitic diseases; Z99.89 Dependence on other enabling machines and devices; Z91.14 Patient's other noncompliance with medication regimen
CPT/HCPCS: 36415; 80053; 81003; 82140; 86803; 87389; G0008; Q2036